=== PATIENT | male | born 1950 | race Caucasian/White ===

== ENCOUNTER → 2021-09-10 | Outpatient (CLI) | payer MEDICARE ==
[2016-02-13 12:02] VITALS: BP 109/69
[~2021-09-10] MED LIST: ASPI-482 PO; CYCL10TA19 PO; DOCU-109 PO; HYDR-2679 PO; IBUP200C9 PO; TAMS0.4C97 PO; [UNRECOGNIZED DRUG - CODE] PO
--- NOTE | 2021-09-10 10:53 | KCIC ---
Examination: MRI of the right shoulder without contrast HISTORY: History of right arm weakness COMPARISON: None TECHNIQUE: Multiplanar, multisequence MR imaging of the right shoulder performed without contrast. FINDINGS: The long head of the biceps tendon within the bicipital groove. The attachment of the long head the b iceps tendon to the superior labral anchor grossly appears intact. The attachment of the subscapularis tendon, supraspinatus, infraspinatus tendon grossly appears intac t. Moderate increased T2 signal identified in the supraspinatus tendon likely moderate tendinosis. Th e muscle bulk grossly appears unremarkable. Moderate degenerative changes the glenohumeral joint. The acromion is type II. Fat is present within the rotator interval. Small shoulder joint effusion. There is faint increased T 2 signal identified in the superior labrum extending posteriorly could be labral tear. There is incre ased T2 signal identified in the acromioclavicular joint likely moderate degenerative changes. IMPRESSION: 1. Moderate tendinosis of the supraspinatus tendon. 2. Faint increased T2 signal identified in the superior labrum extending posteriorly could be labral tear. Consider MR arthrogram for further evaluation. 3. Moderate degenerative changes acromioclavicular joint. Electronically signed by: Ronni Leblanc MD (09/10/2021 10:50 AM) [id number]
== END ==
LOC: KCIC MRI 08:09
PROVIDERS: ATTEND Family Medicine
DX: M19.011 Primary osteoarthritis, right shoulder (principal); M62.81 Muscle weakness (generalized); M75.31 Calcific tendinitis of right shoulder; M25.411 Effusion, right shoulder; M25.811 Other specified joint disorders, right shoulder
CPT/HCPCS: 73221

== ENCOUNTER → 2021-12-03 | Outpatient (CLI) | payer MEDICARE ==
[2016-02-13 12:02] VITALS: BP 109/69
[~2021-12-03] MED LIST changes: +HYDR-2765 PO
== END ==
LOC: LAB 12:37
PROVIDERS: ATTEND Neurological Surgery
DX: Z01.812 Encounter for preprocedural laboratory examination (principal); Z20.822 Contact with and (suspected) exposure to COVID-19
CPT/HCPCS: U0003; U0005

== ENCOUNTER 2021-12-05 08:49 | Day surgery (SDC) | payer MEDICARE ==
[~2021-12-05] VITALS: Ht 185.4 cm; Wt 104.0 kg
[~2021-12-05 08:49] MED LIST changes: -HYDR-2765 PO; +HYDROmorphone 2 MG/ML INJ. IVP PRN; +IV RINGERS,LACTATED 1000ML 1,000 ML IV SCH; +MORPHINE SULFATE 2 MG/ML INJ. IVP PRN; +PROCHLORPERAZINE 10 MG/2 ML VIAL. IVP PRN; +PROPOFOL 10 MG/ML (20ML) VIAL. IV ONE; +fentaNYL PF VIAL 100 MCG/2 ML VIAL IVP PRN
[2021-12-05] MEDS ORDERED: ROCURONIUM 50 MG/5 ML VIAL. ONE ×2 (09:16)
[2021-12-05 09:18] VITALS: BP 156/70
[2021-12-05] MEDS ORDERED: ROPIVacaine 0.5% PF 20 ML VIAL. ONE (09:18)
[2021-12-05] MEDS ORDERED: ONDANSETRON PF 4 MG/2 ML VIAL. ONE (09:18)
[2021-12-05] MEDS ORDERED: HYDR-2765 PO (09:18)
[2021-12-05] MEDS ORDERED: MIDAZOLAM HCL/PF 2 MG/2 ML VIAL. ONE (09:18)
[2021-12-05] MEDS ORDERED: DEXAMETHASONE SOD PHOS 4 MG/ML VIAL ONE (09:18)
[2021-12-05] MEDS ORDERED: EPINEPHrine VIAL 30 MG/30 ML VIAL ONE (10:13)
[2021-12-05] MEDS ORDERED: LIDOCAINE 1% PF 5 ML VIAL. ONE (10:37)
[2021-12-05] MEDS ORDERED: SUGAMMADEX SODIUM 200 MG/2 ML VIAL. IVP ONE (10:45)
[2021-12-05] MEDS ORDERED: EPINEPHrine VIAL 30 MG/30 ML VIAL IM ONE (10:45)
--- NOTE | 2021-12-05 11:19 | PDOC4 ---
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 DO Dec 05, 2021 11:19
--- NOTE | 2021-12-05 11:21 | DISCH ---
DISCHARGE INSTRUCTIONS Condition on Discharge Condition on Discharge: Stable Activity After Discharge Activity Instructions for Disc: Activity as tolerated, Avoid exertion Lifting Instructions after Dis: No heavy lifting, No pulling or pushing, Do not lift >10 pounds Driving Instructions after Dis: Do not drive today Diet after Discharge Additional Diet Restrictions: resume home diet Wound Incision Care Wound/Incision Care: Ice to area for comfort, Do not change dressing Contacting the DR. after DC Call your doctor for: Concerns you may have Treatment/Equipment after DC Adaptive Equipment Issued: Brace/splint (Main sling as tolerated) NO DIAZ Jr. DO Dec 05, 2021 11:21
[2021-12-05] MEDS ORDERED: HYDROcodone/APAP 7.5/325MG 1 TAB TABLET PO ONE (11:30)
--- NOTE | 2021-12-05 11:30 | OP ---
DATE OF SURGERY: 12/05/2021 PREOPERATIVE DIAGNOSES: Impingement, acromioclavicular arthrosis, partial biceps tear, possible rotator cuff tear, right shoulder. POSTOPERATIVE DIAGNOSES: Right shoulder impingement, acromioclavicular arthrosis, SLAP tear with partial rotator cuff tear, musculotendinous junction, right shoulder. PROCEDURE: Right shoulder arthroscopy with subacromial decompression, distal clavicle resection, biceps tenolysis, bursectomy, mini open incision and debridement. SURGEON: Navid Ceballos Jr, DO APPLICATIONS ADMINISTRATOR: Thom Bravo. ANESTHESIA: General. COMPLICATIONS: None. ESTIMATED BLOOD LOSS: 20 mL DESCRIPTION OF PROCEDURE: The patient was taken to the operative suite, given a general anesthetic, placed in the beach chair position. Right shoulder was then prepped and draped in a sterile fashion. Standard posterior portal was established. Glenohumeral joint was visualized and noted to be intact along the area of the humeral head. The undersurface of the cuff looked frayed toward the musculotendinous junction of the actual tendon insertion site, actually looked very good at this point. The biceps tendon, however, was frayed significantly approximately 60% torn in addition to the tearing into the superior labrum from the 10 o'clock to the 2 o'clock position with significant subluxation of the biceps tendon toward the anterior aspect of the groove. Therefore, through the anterior portal, which was established the biceps tenolysis was released and then debridement was undertaken to the labrum. The remainder of the tissue noted to be intact and stable. Therefore, scope was then taken into the subacromial region and again, there was noted to be tearing at the musculotendinous junction, which was debrided back to stable tissue. Large anterior osteophyte and medial osteophyte along the area of the AC joint were removed through acromioplasty and after that was performed, the anterior portal was redirected into the area of the AC joint, 1 cm of the distal clavicle was resected as well as the undersurface spurs from the clavicle and acromion along this area. This was adequately decompressed and due to the fact that there were some signs that this was a larger tear of the musculotendinous junction instruments were removed and the lateral portal was incorporated into a lateral incision through skin and subcutaneous tissues. Superficial bleeding was coagulated at this point. The split the deltoid fascia was undertaken. This was retracted anteriorly and posteriorly. It was noted at that point that the debridement of the musculotendinous junction had been appropriate. There was no possibility of being repairing along this area nor was in a full thickness tear at this point and certainly the remainder of the rotator cuff looked completely intact. Therefore, bursectomy was completed. This was then thoroughly irrigated. The deltoid split was reapproximated. Superficial tissues and skin was reapproximated. Sterile dressing was applied. The patient was then taken from the operative bed to postoperative bed, taken to the PACU in stable condition. AWILDA DR: Kain TID: [id number]
[2021-12-05] MEDS ORDERED: PROCHLORPERAZINE 10 MG/2 ML VIAL. ONE (11:39)
[2021-12-05] MEDS ORDERED: fentaNYL PF VIAL 100 MCG/2 ML VIAL ONE (11:46)
[2021-12-05] MEDS: fentaNYL PF VIAL 100 MCG/2 ML VIAL IVP PRN ×2 (11:48→12:22)
[2021-12-05 13:45] VITALS: BP 132/68
== END 2021-12-05 14:05 | disposition home or self-care (01) ==
LOC: SURG 08:49
PROVIDERS: ATTEND Orthopaedic Surgery
DX: M25.811 Other specified joint disorders, right shoulder (principal); M19.011 Primary osteoarthritis, right shoulder; N40.0 Benign prostatic hyperplasia without lower urinary tract symptoms; Z79.899 Other long term (current) drug therapy; Z98.890 Other specified postprocedural states
CPT/HCPCS: 29822; 29824; A4209; A4565; A4930; J0171; J0690; J0780; J1100; J2250; J2405; J2704; J2795; J3010; J3490; A4452